=== PATIENT | female | born 2000 | race Two or more races ===

== ENCOUNTER 2023-08-03 15:52 | Observation (INO) | payer BC, MEDICAID ==
[~2023-08-03] VITALS: Ht 157.5 cm; Wt 53.1 kg
[2023-08-03 16:22] VITALS: BP 125/76; PULSE 125; RESP 18; O2SAT 98
== END 2023-08-03 17:30 | disposition home or self-care (01) ==
LOC: ER 15:52 → LDRP 16:08
PROVIDERS: ADMIT Obstetrics & Gynecology; ATTEND Obstetrics & Gynecology
DX: O26.893 Other specified pregnancy related conditions, third trimester (principal); R10.9 Unspecified abdominal pain; O99.12 Other diseases of the blood and blood-forming organs and certain disorders involving the immune mechanism complicating childbirth; D84.9 Immunodeficiency, unspecified; O21.2 Late vomiting of pregnancy; Z3A.32 32 weeks gestation of pregnancy
CPT/HCPCS: 59025; 81002; G0378

== ENCOUNTER 2024-08-16 16:37 | Emergency (ER) | payer MEDICAID, OTHER ==
[~2024-08-16] VITALS: Ht 157.5 cm; Wt 53.1 kg
[2024-08-16 16:57] VITALS: BP 120/83; PULSE 97; RESP 16; O2SAT 100
[2024-08-16 17:32] LABS: Urine Bacteria None Seen /hpf (None Seen)
[2024-08-16 17:53] LABS: Urine Blood 3+ /uL (Negative); Urine Clarity Ex.Turbid (Clear); Urine Color Light-Orange (Yellow); Urine Mucus FEW (None Seen); Urine Protein, UAD 1+ (Negative); Urine Specific Gravity 1.029 (1.001-1.035); Urine Urobilinogen 3 mg/dL (Negative); Urine WBC 34 /hpf (0 - 5); Urine pH 5.5 (5.0-9.0)
== END 2024-08-16 20:30 | disposition left against medical advice (07) ==
LOC: ER 16:37
DX: R10.2 Pelvic and perineal pain (principal); R11.2 Nausea with vomiting, unspecified
CPT/HCPCS: 81001